=== PATIENT | female | born 1940 | race Caucasian/White ===

== ENCOUNTER 2024-03-04 15:12 | Emergency (ER) | payer OTHER ==
[2024-03-04] MEDS ORDERED: NA CHLORIDE 0.9% 500 ML ONE (15:37)
[2024-03-04 16:03] LABS: Specific Gravity 1.019 (1.005-1.030); Sqamous Epithelial <5 /HPF (None Seen); Urine Bacteria None Seen /HPF (<20); Urine Bilirubin NEGATIVE (Negative); Urine Blood 2+ (Negative); Urine Clarity Extremely Turbid (Clear); Urine Color Yellow (Yellow); Urine Culture Reflex Order NOT NEEDED; Urine Glucose NEGATIVE (Negative); Urine Ketones 1+ (Negative); Urine Microscopic Reflex YN ORDER UMIC; Urine Mucus Slight /HPF (None Seen); Urine Nitrite NEGATIVE (Negative); Urine Protein TRACE (Negative); Urine Urobilinogen Normal (Normal); Urine WBC <5 /HPF (<5); Urine WBC Clump Rare /HPF (None Seen); Urine Yeast (Budding) Trace /HPF (None Seen); Urine pH 5.5 (5.0-7.0)
[2024-03-04 16:09] LABS: Absolute Basophils 0.1 K/uL (0-0.5); Absolute Lymphocytes (CBC) 1.4 K/uL (0.7-4.9); Absolute Monocytes 0.3 K/uL (0.1-1.3); Absolute Neutrophil 6.1 K/uL (1.8-8.0); Basophils % 0.8 % (0-1.3); Eosinophils % 0.3 % (0-4.4); Hematocrit 42.7 % (36.0-45.0); Hemoglobin 14.3 g/dL (12.0-15.0); Lymphocytes % 17.9 % (15.3-44.8); MCH 31.8 pg (27.0-35.0); MCHC 33.5 g/dL (32.0-36.0); MCV 94.8 fL (80-100); MPV 7.6 fL (7.6-11.3); Monocytes % 4.2 % (3.3-12.3); Neutrophils % 76.8 % (41.7-73.7); Platelets 284 thou/uL (152-406); Red Cell Distribution Width 13.9 % (12.1-15.2)
[2024-03-04 16:23] LABS: Albumin/Globulin Ratio 1.1 (1.1-1.8); Anion Gap 9.2 mEq/L (5.0-15.0); Bilirubin Total 0.6 mg/dL (0.2-1.0); Globulin 3.5 g/dL (2.3-3.5); Protein, Total 7.5 g/dL (6.4-8.2)
[2024-03-04 16:24] LABS: Potassium 4.2 mEq/L (3.5-5.1)
[2024-03-04] MEDS ORDERED: CIPROFLOXACIN HCL 500 MG TAB ONE (17:08)
[2024-03-04] MEDS ORDERED: CEFTRIAXONE 1000 MG/VIAL ONE (17:08)
--- NOTE | 2024-03-04 17:18 | ER ---
Nurse's Notes [facility] Name: Tish Flowers Age: 83 yrs Sex: Female : 1940 Arrival Date: 03/04/2024 Time: 15:12 Bed 6 Private MD: Diagnosis: Dementia in other 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 disturbance;UTI/ Urinary tract infection, site not specified Presentation: 03/04 15:20 Chief complaint: EMS states: called for patient in the mall parking lot trying to get ko1 into a car that was not hers. She appeared lost, PD was called and her was contacted, he is on his way from [place] where they live. Patient states she is sometimes forgetful, she went to visit a friend and got turned around and ended up here. Coronavirus screen: At this time, the client does not indicate any symptoms associated with coronavirus-19. Ebola Screen: No symptoms or risks identified at this time. Initial Sepsis Screen: Does the patient meet any 2 criteria? No. Patient's initial sepsis screen is negative. Does the patient have a suspected source of infection? No. Patient's initial sepsis screen is negative. Risk Assessment: Do you want to hurt yourself or someone else? Patient reports no desire to harm self or others. Onset of symptoms was March 04, 2024. Care prior to arrival: Glucose check: 109. 15:20 Method Of Arrival: EMS: [facility] ko1 15:20 Acuity: CHRISTEN 3 ko1 Triage Assessment: 15:31 General: Appears in no apparent distress. Behavior is calm, cooperative, flat. Pain: ko1 Denies pain. EENT: No deficits noted. Neuro: Level of Consciousness is awake, alert, obeys commands, Oriented to person, place, time, situation. Cardiovascular: No deficits noted. Respiratory: No deficits noted. GI: No deficits noted. : No deficits noted. Derm: No deficits noted. Musculoskeletal: No deficits noted. Historical: - Allergies: 15:31 No Known Allergies; ko1 - Home Meds: 15:31 None [Active]; ko1 - PMHx: 15:31 None; ko1 - PSHx: 15:31 None; ko1 - Immunization history:: Adult Immunizations unknown. - Infectious Disease History:: Denies. - Social history:: Smoking status: Patient denies any tobacco usage or history of. Screenin:33 [facility] ED Fall Risk Assessment (Adult) History of falling in the last 3 months, ko1 including since admission No falls in past 3 months (0 pts) Confusion or Disorientation Yes (5 pts) Intoxicated or Sedated No (0 pts) Impaired Gait No (0 pts) Mobility Assist Device Used No (0 pt) Altered Elimination No (0 pt) Score/Fall Risk Level 3 or more points = High Risk Oriented to surroundings, Maintained a safe environment, Educated pt \\T\\ family on fall prevention, incl call for assistance when getting out of bed, Assessed \\T\\ reinforced patient's understanding of fall precautions, Provided non-skid footwear, Hourly rounding (assess needs \\T\\ fall precautionary measures) done, Utilized family, sitter, or virtual lens silverer as indicated. Abuse screen: Denies threats or abuse. Denies injuries from another. Nutritional screening: No deficits noted. Tuberculosis screening: No symptoms or risk factors identified. Assessment: 15:33 Reassessment: see triage note. ko1 Vital Signs: 15:20 BP 113 / 92; Pulse 68; Resp 16; Temp 97.9; Pulse Ox 100% on R/A; ko1 15:33 BP 137 / 70; Pulse 85; Resp 15; Pulse Ox 99% ; ko1 17:28 BP 140 / 81; Pulse 70; Resp 16; Pulse Ox 99% ; ko1 NIH Stroke Scale Scores: 15:36 NIHSS Score: 0 [facility] ED Course: 15:18 Patient arrived in ED. ss 15:22 Juan Patiño MD is Attending Physician. [facility] 15:28 Paulette Payton, SHIRLEY is Primary Nurse. ko1 15:31 Triage completed. ko1 15:31 Arm band placed on right wrist. Patient placed in an exam room, on a stretcher, on ko1 monitor worker, on pulse oximetry, Patient notified of wait time. 15:33 Patient has correct armband on for positive identification. Bed in low position. Call ko1 light in reach. Side rails up X2. Provided Education on: call light. Client placed on continuous cardiac and pulse oximetry monitoring. NIBP monitoring applied. groundwater monitoring technician on. Door closed. Noise minimized. Lights dimmed. Warm blanket given. Pillow given. 16:00 Assisted to bathroom. ko1 16:03 Urinalysis w/ reflexes Sent. ko1 16:03 Comprehensive Metabolic Panel Sent. ko1 16:03 CBC with Diff Sent. ko1 16:03 No provider procedures requiring assistance completed. Initial lab(s) drawn, by me, sonja sent to lab. Urine collected: clean catch specimen, clear. Inserted saline lock: 20 gauge in right antecubital area, using aseptic technique. Blood collected. Flushed with 10 mL NS. 16:45 1645 CM met with primary Nurse SHIRLEY Caldwell and KRYSTYNA Trivedi, at the nursing station. Shikha porter reported is A \\T\\ O x 1 to self, and was found in the parking lot of the [employer]. Shikha explained that a witness called the police after the patient was found wandering around the mall parking lot appearing confused. He reports that Officer Morgan of [place] [employer] spoke to the patient's and the was en route to the hospital. Shikha explained that it had been nearly 2 hours since the officer had spoken to the . 1648 CHAD called [place] [employer] Non- Emergency number at [phone] and spoke to Radha who provided the phone number to 's named Hero Flowers, at [phone]. 1654 CM reached out to Hero Flowers via telephone, Hero answered and explained he was in [place], on the way to the hospital. he explained that he was by [facility]. When Hero stated he was close by and saw the emergency sign, CHAD asked about what vehicle he was driving to keep an eye out to the front of the ED; stated he was driving a [employer]. CM provided directions and then ended call so that could drive safely. 1705 CM met with and Mr.Gary Flowers at the bedside in the ED exam room. Hero confirms they both live in a single story home in [place] at [address], [address]. states "There have been some things, but not like this" , when CM asked if had gotten lost before. states she has a daughter named Micki and two grandchildren but cannot recall her daughter's last name or her grandchildren's names. states was visiting friends and he was on his way to go golfing when he received a call from a global chief experience officer. CM confirmed he had the correct phone number to the police department and officer's name. states they do not have family in the area but might be able to call a friend to help them get both vehicles home. He states that once he got in the car, he was going to call the police to ask about 's vehicle. CM confirmed with provider, discharge orders. Patient was discharged from the ED. 17:00 Assisted to bathroom. ko1 17:07 Urine Culture Sent. ko1 17:28 IV discontinued, intact, bleeding controlled, No redness/swelling at site. Pressure ko1 dressing applied. Administered Medications: 16:03 Drug: NS 0.9% IV 500 ml IV at bolus once Route: IV; Rate: bolus; Site: right ko1 antecubital; 16:44 Follow up: Response: No adverse reaction; IV Status: Completed infusion; IV Intake: ko1 500ml 17:11 Drug: Rocephin IV 1 grams IV at per protocol once; Given slow IV push per pharmacy ko1 instructions Route: IV; Rate: per protocol; Site: right antecubital; 17:26 Follow up: Response: No adverse reaction; IV Status: Completed infusion; IV Intake: [id number] 17:11 Drug: Ciprofloxacin PO 500 mg PO once Route: PO; ko1 17:46 Follow up: Response: No adverse reaction ko1 Medication: 16:04 VIS not applicable for this client. ko1 Intake: 16:44 IV: 500ml; Total: 500ml. ko1 17:26 IV: 10ml; Total: 510ml. ko1 Outcome: 17:18 Discharge ordered by MD. hoskins 17:45 Discharged to home ambulatory, with family, ko1 17:45 Condition: stable 17:45 Discharge instructions given to patient, family, Instructed on discharge instructions, follow up and referral plans. medication usage, Demonstrated understanding of instructions, follow-up care, medications, Prescriptions given X 1, 17:45 Patient left the ED. ko1 NIH Stroke Scale - NIH Stroke Score Date: 03/04/2024 Time: 15:36 Total Score = 0 10. Dysarthria (speech clarity - read or repeat words) - 0(Normal) 11. Extinction and Inattention (visual/tactile/auditory/spatial/personal) - 0(No abnormality) 1a. Level of Consciousness (LOC) - 0(Alert) 1b. Level of Consciousness (LOC) (Month \\T\\ Age) - 0(Both) 1c. LOC Commands (Open \\T\\ Closes Eyes/Tile Grinder) - 0(Both) 2. Best Gaze (Lateral Gaze Paresis) - 0(Normal) 3. Visual Field Loss - 0(No visual loss) 4. Facial Palsy - 0(Normal) 5a. Left Arm: Motor (10-second hold) - 0(No drift) 5b. Right Arm: Motor (10-second hold) - 0(No drift) 6a. Left Leg: Motor (5-second hold - always test supine) - 0(No drift) 6b. Right Leg: Motor (5-second hold - always test supine) - 0(No drift) 7. Limb Ataxia (finger/nose \\T\\ heel/[place] - test with eyes open) - 0(Absent) 8. Sensory Loss (pinprick arms/legs/face) - 0(Normal) 9. Best Language: Aphasia (description/naming/reading) - 0(No aphasia) Initials: gato Signatures: Juan Patiño MD MD cha Blanchard, Shelby, RN SHIRLEY ss Paulette Payton RN RN ko1 Radha Love RN RN ane
--- NOTE | 2024-03-04 17:18 | EDPHYS ---
Physician Documentation [facility] Name: Tish Flowers Age: 83 yrs Sex: Female : 1940 Arrival Date: 03/04/2024 Time: 15:12 Bed 6 Private MD: ED Physician Juan Patiño HPI: 03/04 15:32 This 83 yrs old Female presents to ER via EMS with complaints of Altered gato Mental Status. 15:32 The patient presents with trouble concentrating. Onset: The symptoms/episode gato began/occurred just prior to arrival. Possible causes: CVA or TIA, low blood sugar. Associated signs and symptoms: Pertinent positives: confusion. Current symptoms: In the emergency department the patient's symptoms are unchanged from the initial presentation. Patient's baseline: Neuro: alert and fully oriented, Motor: no deficits, Ambulation: walks without assistance. The patient has experienced similar episodes in the past, multiple times. Historical: - Allergies: 15:31 No Known Allergies; ko1 - Home Meds: 15:31 None [Active]; ko1 - PMHx: 15:31 None; ko1 - PSHx: 15:31 None; ko1 - Immunization history:: Adult Immunizations unknown. - Infectious Disease History:: Denies. - Social history:: Smoking status: Patient denies any tobacco usage or history of. ROS: 15:36 Constitutional: Negative for fever, chills, and weight loss, Eyes: Negative for injury, gato pain, redness, and discharge, ENT: Negative for injury, pain, and discharge, Neck: Negative for injury, pain, and swelling, Cardiovascular: Negative for chest pain, palpitations, and edema, Respiratory: Negative for shortness of breath, cough, wheezing, and pleuritic chest pain, Abdomen/GI: Negative for abdominal pain, nausea, vomiting, diarrhea, and constipation, Back: Negative for injury and pain, : Negative for injury, bleeding, discharge, and swelling, MS/Extremity: Negative for injury and deformity, Skin: Negative for injury, rash, and discoloration, Psych: Negative for depression, anxiety, suicide ideation, homicidal ideation, and hallucinations, Allergy/Immunology: Negative for hives, rash, and allergies, Endocrine: Negative for neck swelling, polydipsia, polyuria, polyphagia, and marked weight changes, Hematologic/Lymphatic: Negative for swollen nodes, abnormal bleeding, and unusual bruising, 15:36 Neuro: Positive for altered mental status, Exam: 15:36 Constitutional: This is a well developed, well nourished patient who is awake, alert, gato and in no acute distress. Head/Face: Normocephalic, atraumatic. Eyes: Pupils equal round and reactive to light, extra-ocular motions intact. Lids and lashes normal. Conjunctiva and sclera are non-icteric and not injected. Cornea within normal limits. Periorbital areas with no swelling, redness, or edema. ENT: Nares patent. No nasal discharge, no septal abnormalities noted. Tympanic membranes are normal and external auditory canals are clear. Oropharynx with no redness, swelling, or masses, exudates, or evidence of obstruction, uvula midline. Mucous membranes moist. Neck: Trachea midline, no thyromegaly or masses palpated, and no cervical lymphadenopathy. Supple, full range of motion without nuchal rigidity, or vertebral point tenderness. No Meningismus. Chest/axilla: Normal chest wall appearance and motion. Nontender with no deformity. No lesions are appreciated. Cardiovascular: Regular rate and rhythm with a normal S1 and S2. No gallops, murmurs, or rubs. Normal PMI, no JVD. No pulse deficits. Respiratory: Lungs have equal breath sounds bilaterally, clear to auscultation and percussion. No rales, rhonchi or wheezes noted. No increased work of breathing, no retractions or nasal flaring. Abdomen/GI: Soft, non-tender, with normal bowel sounds. No distension or tympany. No guarding or rebound. No evidence of tenderness throughout. Back: No spinal tenderness. No costovertebral tenderness. Full range of motion. Female : Normal external genitalia. Skin: Warm, dry with normal turgor. Normal color with no rashes, no lesions, and no evidence of cellulitis. MS/ Extremity: Pulses equal, no cyanosis. Neurovascular intact. Full, normal range of motion. Neuro: Awake and alert, GCS 15, oriented to person, place, time, and situation. Cranial nerves II-XII grossly intact. Motor strength 5/5 in all extremities. Sensory grossly intact. Cerebellar exam normal. Normal gait. Psych: Awake, alert, with orientation to person, place and time. Behavior, mood, and affect are within normal limits. Vital Signs: 15:20 BP 113 / 92; Pulse 68; Resp 16; Temp 97.9; Pulse Ox 100% on R/A; ko1 15:33 BP 137 / 70; Pulse 85; Resp 15; Pulse Ox 99% ; ko1 17:28 BP 140 / 81; Pulse 70; Resp 16; Pulse Ox 99% ; ko1 NIH Stroke Scale Scores: 15:36 NIHSS Score: 0 gato MDM: 15:22 Patient medically screened. gato 03/04 15:31 Order name: CBC with Diff; Complete Time: 16:53 gato 03/04 15:31 Order name: Comprehensive Metabolic Panel; Complete Time: 16:53 gato 03/04 15:31 Order name: Urinalysis w/ reflexes; Complete Time: 16:53 gato Administered Medications: 16:03 Drug: NS 0.9% IV 500 ml IV at bolus once Route: IV; Rate: bolus; Site: right ko1 antecubital; 16:44 Follow up: Response: No adverse reaction; IV Status: Completed infusion; IV Intake: ko1 500ml 17:11 Drug: Rocephin IV 1 grams IV at per protocol once; Given slow IV push per pharmacy ko1 instructions Route: IV; Rate: per protocol; Site: right antecubital; 17:26 Follow up: Response: No adverse reaction; IV Status: Completed infusion; IV Intake: [id number] 17:11 Drug: Ciprofloxacin PO 500 mg PO once Route: PO; ko1 17:46 Follow up: Response: No adverse reaction ko1 Disposition Summary: 03/04/24 17:18 Discharge Ordered Notes: Location: Home gato Problem: new gato Symptoms: have improved gato Condition: Stable gato Diagnosis - Dementia in other 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 disturbance gato - UTI/ Urinary tract infection, site not specified gato Followup: gato - With: Private Physician - When: 2 - 3 days - Reason: Recheck today's complaints, Continuance of care, Re-evaluation by your physician Discharge Instructions: - Discharge Summary Sheet gato - Dementia gato - Urinary Tract Infection, Adult gato - Urinary Tract Infection, Adult, [id number] gato - Dementia, [id number] gato - Dementia Caregiver Guide gato Forms: - Medication Reconciliation Form gato - Antibiotic Education gato - Prescription Opioid Use gato - Patient Portal Instructions gato - Leadership Thank You Letter gato Prescriptions: - Cipro 250 mg Oral tablet - take 1 tablet ORAL route every 12 hours; 10 tablet; Refills: 0, Product gato Selection Permitted NIH Stroke Scale - NIH Stroke Score Date: 03/04/2024 Time: 15:36 Total Score = 0 10. Dysarthria (speech clarity - read or repeat words) - 0(Normal) 11. Extinction and Inattention (visual/tactile/auditory/spatial/personal) - 0(No abnormality) 1a. Level of Consciousness (LOC) - 0(Alert) 1b. Level of Consciousness (LOC) (Month \T\ Age) - 0(Both) 1c. LOC Commands (Open \T\ Closes Eyes/Wood Crew Supervisor) - 0(Both) 2. Best Gaze (Lateral Gaze Paresis) - 0(Normal) 3. Visual Field Loss - 0(No visual loss) 4. Facial Palsy - 0(Normal) 5a. Left Arm: Motor (10-second hold) - 0(No drift) 5b. Right Arm: Motor (10-second hold) - 0(No drift) 6a. Left Leg: Motor (5-second hold - always test supine) - 0(No drift) 6b. Right Leg: Motor (5-second hold - always test supine) - 0(No drift) 7. Limb Ataxia (finger/nose \T\ heel/[place] - test with eyes open) - 0(Absent) 8. Sensory Loss (pinprick arms/legs/face) - 0(Normal) 9. Best Language: Aphasia (description/naming/reading) - 0(No aphasia) Initials: [facility] Signatures: Dispatcher [employer] EDMS Juan Patiño MD MD cha Oliver, Kathy RN RN ko1 Corrections: (The following items were deleted from the chart) 15:31 15:31 CBC+H.LAB.BRZ ordered. EDMS EDMS 15:31 15:31 COMPREHENSIVE METABOLIC PANEL+C.LAB.BRZ ordered. EDMS EDMS 15:31 15:31 Urinalysis+U.LAB.BRZ ordered. EDMS EDMS 16:56 16:56 Urine Culture+BA.LAB.BRZ ordered. EDMS EDMS
[2024-03-04 19:06] VITALS: TEMP 97.9
[2024-03-04 19:07] VITALS: O2SAT 99
[2024-03-04 19:09] VITALS: BP 140/81
== END 2024-03-04 17:45 | disposition home or self-care (01) ==
LOC: ER 15:12
DX: N39.0 Urinary tract infection, site not specified (principal); F02.80 Dementia in other diseases classified elsewhere, unspecified severity, without behavioral disturbance, psychotic disturbance, mood disturbance, and anxiety
CPT/HCPCS: 96361; 85025; 81001; 36415; 80053; 96374; 99285; J7040; J0696